=== PATIENT | female | born 1950 | race Caucasian/White ===

== ENCOUNTER 2020-06-25 10:18 | Outpatient (CLI) | payer BC, SELFPAY ==
--- NOTE | 2020-06-25 10:28 | XR_ITS ---
WS: [id number] SCREENING DEXA SCAN [employer] CLINICAL INFORMATION: AGE-RELATED OSTEOPOROSIS WITHOUT CURRENT PATHOLOGICAL FRACTU COMPARISON: FINDINGS: The L1-L4 bone mineral density measures 0.847 g/cm2. This corresponds to a T score score of -2.8 and Z score of -0.9. Left femoral neck bone mineral density measures 0.785 g/cm2. This corresponds to a T score of -1.8 an d Z score of -0.2. Right femoral neck bone mineral density measures 0.767 g/cm2. This corresponds to a T score -1.9of an d Z score of -0.4. Mean femoral neck bone mineral density measures 0.776 g/cm2. This corresponds to a T score of -1.8 an d Z score of -0.3. XR/XR DEXA axial skeleton* [id number] IMPRESSION: Osteoporosis lumbar spine. Osteopenia in the femoral necks. Patient's FRAX calculated 10 year probability for major osteoporotic fracture i s 19.1 % and osteoporotic hip fracture is 4.1%.
== END 2020-06-25 10:19 | disposition home or self-care (01) ==
LOC: RADWPI 10:22
PROVIDERS: PCP Family Medicine; Visit Provider Family Medicine
DX: M81.0 Age-related osteoporosis without current pathological fracture (principal); M85.88 Other specified disorders of bone density and structure, other site
CPT/HCPCS: 77080

== ENCOUNTER 2020-07-26 11:17 | Outpatient (CLI) | payer BC, MEDICARE, SELFPAY ==
--- NOTE | 2020-07-26 11:19 | MM_ITS ---
WS: [id number] BILATERAL SCREENING DIGITAL MAMMOGRAM WITH CAD HISTORY: SCREENING COMPARISON: 07/21/2018, 07/02/2017 Bilateral CC and MLO views submitted. Computer aided detection analyzed. Breast composition: The breasts are heterogeneously dense, which may obscure small masses. No suspici ous masses, microcalcifications or architectural distortion. Benign-appearing calcifications in the c entral LEFT breast. MM/[place] [id number] IMPRESSION: BI-RADS: 2-Benign FOLLOW UP: 1 Year Follow-up
== END 2020-07-26 11:18 | disposition home or self-care (01) ==
LOC: RADSHAW 11:17
PROVIDERS: PCP Family Medicine; Visit Provider Family Medicine
DX: Z12.31 Encounter for screening mammogram for malignant neoplasm of breast (principal)
CPT/HCPCS: 77067

== ENCOUNTER 2021-08-14 14:32 | Outpatient (CLI) | payer BC, MEDICARE, SELFPAY ==
--- NOTE | 2021-08-14 14:58 | XR_ITS ---
WS: [id number] Thoracic spine, AP and lateral views, 08/14/2021 Clinical Data: FALL Comparison: Thoracic spine, 06/03/2010. Findings: There are compression fractures of T8, T9, T12 and L1.The height loss is greater than 25% but less t cuevas 50%. The T8 and T9 compression fractures may be acute. There is anterior osteoarthritic spurring is seen at T11 and T12. The disc heights are maintained. There is a dextroscoliosis. The paravertebral region is normal. XR/XR thoracic spine 2V [id number] Impression: 1. Compression fractures of T8, T9, T12 and L1. 2. Dextroscoliosis and osteoarthritis.
== END 2021-08-14 14:33 | disposition home or self-care (01) ==
PROVIDERS: PCP Family Medicine; Visit Provider Family Medicine
DX: S22.069A Unspecified fracture of T7-T8 vertebra, initial encounter for closed fracture (principal); S22.079A Unspecified fracture of T9-T10 vertebra, initial encounter for closed fracture; S22.089A Unspecified fracture of T11-T12 vertebra, initial encounter for closed fracture; S32.019A Unspecified fracture of first lumbar vertebra, initial encounter for closed fracture; W19.XXXA Unspecified fall, initial encounter; M41.84 Other forms of scoliosis, thoracic region
CPT/HCPCS: 72070

== ENCOUNTER 2021-09-26 10:15 | Outpatient (CLI) | payer BC, MEDICARE, SELFPAY ==
--- NOTE | 2021-09-26 10:24 | MM_ITS ---
WS: [id number] BILATERAL SCREENING 3D TOMOSYNTHESIS DIGITAL MAMMOGRAM WITH CAD HISTORY: SCREENING COMPARISON: None available. Bilateral CC and MLO views submitted. Computer aided detection analyzed. Breast composition: The breasts are heterogeneously dense, which may obscure small masses. No suspici ous masses, microcalcifications or architectural distortion. MM/[place] [id number] IMPRESSION: BI-RADS: 1-Negative FOLLOW UP: 1 Year Follow-up
== END 2021-09-26 10:16 | disposition home or self-care (01) ==
LOC: RADSHAW 10:18
PROVIDERS: PCP Family Medicine; Visit Provider Family Medicine
DX: Z12.31 Encounter for screening mammogram for malignant neoplasm of breast (principal)
CPT/HCPCS: 77063; 77067

== ENCOUNTER 2021-12-16 13:32 | Outpatient (CLI) | payer BC, MEDICARE, SELFPAY ==
--- NOTE | 2021-12-16 13:52 | XR_ITS ---
WS: [email or web address] Right ankle, 3 views, 12/16/2021 Clinical Data: LOCALIZED SWELLNG,MASS,AND LUMP, R LOWER LIMB Comparison: None. Findings: No fractures or dislocations are seen. The ankle mortise is normal. The talus and calcaneus are unrem arkable. No soft tissue swelling over the medial or lateral malleolus is seen. There is a plantar spur. XR/XR ankle RT min 3V* [id number] Impression: Negative right ankle.
== END 2021-12-16 13:33 | disposition home or self-care (01) ==
LOC: RAD 13:37
PROVIDERS: PCP Family Medicine; Visit Provider Family Medicine
DX: R22.41 Localized swelling, mass and lump, right lower limb (principal)
CPT/HCPCS: 73610

== ENCOUNTER → 2022-05-13 13:25 | Outpatient (BNVA) | payer MEDICARE, SELFPAY | PROVIDERS: PCP Family Medicine; Visit Provider Emergency Medicine | DX: R39.9 Unspecified symptoms and signs involving the genitourinary system (principal); N30.01 Acute cystitis with hematuria | CPT/HCPCS: 81003; 87086 ==

== ENCOUNTER 2022-09-28 13:47 | Outpatient (CLI) | payer MEDICARE, SELFPAY ==
--- NOTE | 2022-09-28 13:57 | XR_ITS ---
WS: [id number] DEXA (DUAL ENERGY X-RAY ABSORPTIOMETRY) Bone mineral density was performed using a [employer] machine. HISTORY: OSTEOPOROSIS COMPARISON: 06/25/2020 Lumbar spine BMD (L1-L4): 0.841 g/cm2 T score: -2.8 Z score: -1.0 Total hip BMD: Left: 0.777 g/cm2. T score: -1.8 Z score: -0.2 Right: 0.758 g/cm2. T score: -2.0 Z score: -0.4 10 year probability of a major osteoporotic fracture is 21.5%. Compared to the prior study from 06/25/2020. Lumbar spine bone mineral density has decrease by 0.7%. Bilateral hips bone mineral density has decreased by 1.2%. XR/XR DEXA axial skeleton* [id number] IMPRESSION: OSTEOPOROSIS based upon the WHO classification for females. No significant change in bone mineral density since the prior study.
--- NOTE | 2022-09-28 13:57 | MM_ITS ---
WS: [id number] VIEWS: MLO and CC views both breasts. 3D digital tomosynthesis is also included in this exam. Comparison made with prior exam of 04/22/2015, 05/04/2016, 07/21/2018, 07/26/2020, 09/26/2021.. Findings: There was no sign of mass, architectural distortion or suspicious calcification in either breast. Th e breasts are heterogeneously dense MM/[place] [id number] Impression: BI-RADS: 2-Benign FOLLOW-UP: 1 Year Follow-up This mammogram was also analyzed by the Computer Aided Detection System [employer].
== END 2022-09-28 13:48 | disposition home or self-care (01) ==
LOC: RAD 13:50
PROVIDERS: PCP Family Medicine; Visit Provider Family Medicine
DX: Z12.31 Encounter for screening mammogram for malignant neoplasm of breast (principal); Z78.0 Asymptomatic menopausal state; M81.0 Age-related osteoporosis without current pathological fracture
CPT/HCPCS: 77063; 77067; 77080

== ENCOUNTER → 2023-01-05 10:05 | Outpatient (BNVA) | payer MEDICARE, SELFPAY | PROVIDERS: PCP Family Medicine; Visit Provider Nurse Practitioner Family | DX: R39.9 Unspecified symptoms and signs involving the genitourinary system (principal); N30.01 Acute cystitis with hematuria | CPT/HCPCS: 81000 ==

== ENCOUNTER 2023-08-16 10:37 | Emergency (ER) | payer MEDICARE, SELFPAY ==
[2023-08-16 10:39] VITALS: BMI 22.8
[2023-08-16 10:43] VITALS: BP 115/71; PULSE 69; RESP 16; TEMP 36.7; O2SAT 98
--- NOTE | 2023-08-16 10:53 | ECG_ITS ---
[facility] Test Date: 2023-08-16 Pat Name: Manuela Alvarez Department: Room: Gender: Female Product Support Technician: : 1950 Requested By: Sanjeev Rosales Order Number: [id number] Chantelle MD: Collin Acevedo M.D. Measurements Intervals [place] Rate: 69 P: 80 WI: 135 QRS: 48 QRSD: 72 T: 52 QT: 371 QTc: 400 Interpretive Statements SINUS RHYTHM WITH OCCASIONAL VENTRICULAR PREMATURE COMPLEXES LOW QRS VOLTAGE IN PRECORDIAL LEADS [QRS DEFLECTION < 1.0 mV IN CHEST LEADS] No previous ECG available for comparison Electronically Signed On 08-16-2023 14:20:35 CDT by Collin Acevedo M.D. [email or web address]
--- NOTE | 2023-08-16 10:53 | XRR_ITS ---
PROCEDURE INFORMATION: Exam: XR Chest Exam date and time: 08/16/2023 11:07 AM Age: 73 years old Clinical indication: Angina pectoris and left-sided; Patient HX: Heart racing, left sided chest pain and heaviness feeling TECHNIQUE: Imaging protocol: Radiologic exam of the chest. Views: 1 view. COMPARISON: CR XR thoracic spine 2V [id number] 08/14/2021 3:20 PM FINDINGS: Lungs: Calcified granuloma left lung base. Otherwise, unremarkable.. Pleural spaces: Unremarkable. No pleural effusion. No pneumothorax. Heart/Mediastinum: Unremarkable. No cardiomegaly. Bones/joints: Unchanged moderate scoliosis. Compression deformities in the midthoracic spine. At least 1 may be new. Exact age of these is uncertain. XR/XR chest 1V portable [id number] IMPRESSION: 1. No acute cardiopulmonary disease. 2. Compression deformities midthoracic spine. At least 1 may be new. Uncertain age.
[2023-08-16 11:23] VITALS: BP 149/66; PULSE 74; RESP 16; O2SAT 97
[2023-08-16 11:28] LABS: Basophils % 0.8 %; Eosinophils # 0.1 10^3/uL (0.0-0.8); Lymphocytes # 1.7 10^3/uL (0.8-4.8); Lymphocytes % 33.1 %; Mean Corpuscular HGB Conc 32.6 g/dL (30-55); Mean Corpuscular Hemoglobin 31.5 pg (27-33); Mean Corpuscular Volume 96.6 fl (85-98); Mean Platelet Volume 9.8 fL (7.4-10.4); Monocytes # 0.4 10^3/uL (0.2-0.9); Neutrophils # 2.98 10^3/uL (1.8-7.7); Neutrophils % 57.7 %; Nucleated Red Blood Cells % 0 %; Platelet Count 203 10^3/cmm (157-399); Red Blood Count 4.35 10^6/uL (3.85-5.65); Red Cell Distribution Width 12.7 % (12.1-15.1); White Blood Count 5.16 10^3/uL (3.29-11.43)
--- NOTE | 2023-08-16 11:40 | W.ED.CHESTPA ---
HPI - Chest Pain General: Chief Complaint: Chest Pain Stated Complaint: sob, chest pain Time Seen by Provider: 08/16/23 10:54 History of Present Illness: Patient reports to the ER with complaints of left-sided chest pain and shortness of breath over about the last 3 days. Patient says when these started she got very upset. Patient says that it is still there but is getting better all the time. Patient describes as a pressure. Patient is unknown whether it is true chest pain or radiating from her back. Patient says she has chronic back pain with osteoarthritis and osteoporosis. Patient is never had pain like this before. Patient denies any coronary artery disease, ME, stents etc. Review of Systems General: Reports: 10 or more systems reviewed and unremarkable except in HPI and below Physical Exam Const: COMMON NORMALS: no acute distress, average body habitus, patient oriented x3, no limitations, healthy appearing, alert and well nourished HENMT: COMMON NORMALS: normocephalic, atraumatic, hearing grossly normal bilaterally, external ears normal, Normal external nose present, moist oral mucous membranes and oropharynx normal HEAD & SCALP: normocephalic and atraumatic NOSE: Normal external nose present EXTERNAL EAR: Yes external ears normal Neck/C-Spine: COMMON NORMALS: no JVD Chest: COMMONS NORMALS: normal inspection of the chest and normal palpation of entire chest wall Resp: COMMON NORMALS: normal respiratory effort, No retractions, No use of accessory muscles and clear to auscultation bilaterally AUSCULTATION: clear to auscultation bilaterally Cardio: COMMON NORMALS: no JVD, regular rate, regular rhythm, S1 normal heart sound present, S2 normal heart sound present, No gallops present (Cardio), No clicks present (Cardio), No murmurs present (Cardio) and No rub (Cardio) RATE: regular rate RHYTHM: regular rhythm HEART SOUNDS: S1 normal heart sound present and S2 normal heart sound present GI: COMMON NORMALS: Normal to inspection, nondistended, normoactive bowel sounds present, Soft to palpation, non-tender, No hepatosplenomegaly present and no masses PALPATION: Yes Soft to palpation and Yes No hepatosplenomegaly present Neuro: COMMON NORMALS: patient oriented x3 SENSORIUM/ORIENTATION: Yes alert Course Vital Signs: Vital signs: Vital Signs Temperature 98.0 F 08/16/23 10:43 Pulse Rate 60 03/11/24 13:15 Respiratory Rate 16 08/16/23 13:15 Blood Pressure 152/78 08/16/23 13:15 Pulse Oximetry 100 08/16/23 13:15 Oxygen Delivery Me thod Room Air 08/16/23 10:43 MDM - Chest Pain Medical Decision Making Patient was worked up in a standard cardiac fashion with serial EKGs troponins, chest x-ray, all was essentially benign for acute cardiac issues. She will troponin was less than 6, 2-hour troponin was 6, for delta of essentially 0. Patient remained chest pain-free that the entire time that she was here. Patient be discharged back home to follow-up with her PCP for further evaluation testing. Differential Diagnosis Unlikely acute massive pulmonary embolism, acute respiratory failure, acute myocardial infarction, cardiac arrest or sudden cardiac Medical Records I reviewed the patient's medical records. Lab Data I reviewed the patient's lab results. 08/16/23 11:16 08/16/23 11:16 Radiology Impressions Chest X-Ray 08/16/23 10:53 IMPRESSION: 1. No acute cardiopulmonary disease. 2. Compression deformities midthoracic spine. At least 1 may be new. Uncertain age. Laboratory Results WBC 5.16 10^3/uL (3.29-11.43) 08/16/23 11:16 RBC 4.35 10^6/uL (3.85-5.65) 08/16/23 11:16 Hgb 13.70 g/dL (11.27-16.99) 08/16/23 11:16 Hct 42.0 % (36-47) 08/16/23 11:16 MCV 96.6 fl (85-98) 08/16/23 11:16 MCH 31.5 pg (27-33) 08/16/23 11:16 MCHC 32.6 g/dL (30-55) 08/16/23 11:16 RDW 12.7 % (12.1-15.1) 08/16/23 11:16 Plt Count 203 10^3/cmm (157-399) 08/16/23 11:16 MPV 9.8 fL (7.4-10.4) 08/16/23 11:16 Neut % (Auto) 57.7 % 08/16/23 11:16 Lymph % (Auto) 33.1 % 08/16/23 11:16 Russell % (Auto) 7.0 % 08/16/23 11:16 Eos % (Auto) 1.0 % 08/16/23 11:16 Baso % (Auto) 0.8 % 08/16/23 11:16 Neut # (Auto) 2.98 10^3/uL (1.8-7.7) 08/16/23 11:16 Lymph # (Auto) 1.7 10^3/uL (0.8-4.8) 08/16/23 11:16 Russell # (Auto) 0.4 10^3/uL (0.2-0.9) 08/16/23 11:16 Eos # (Auto) 0.1 10^3/uL (0.0-0.8) 08/16/23 11:16 Baso # (Auto) 0.0 10^3/uL (0.0-0.1) 08/16/23 11:16 Nucleated RBC % (auto) 0 % 08/16/23 11:16 Nucleated RBCs # 0.0 /100WBC 08/16/23 11:16 Sodium 140 mmol/L (136-145) 08/16/23 11:16 Potassium 4.5 mmol/L (3.5-5.1) 08/16/23 11:16 Chloride 104 mmol/L (98-107) 08/16/23 11:16 Carbon Dioxide 25 mmol/L (22-29) 08/16/23 11:16 Anion Gap 15.5 (5-19) 08/16/23 11:16 BUN 16 mg/dL (8-23) 08/16/23 11:16 Creatinine 0.8 mg/dL (0.5-0.9) 08/16/23 11:16 GFR Calculation Not Reportable 08/16/23 11:16 Glucose 88 mg/dL (65-115) 08/16/23 11:16 Calculated Osmolality 291 mOsm/kg (285-295) 08/16/23 11:16 Calcium 9.3 mg/dL (8.5-10.5) 08/16/23 11:16 Total Bilirubin 0.5 mg/dL (0.15-1.2) 08/16/23 11:16 AST 22 U/L (0-32) 08/16/23 11:16 ALT 14 U/L (0-33) 08/16/23 11:16 Alkaline Phosphatase 80 U/L (35-105) 08/16/23 11:16 Troponin T Baseline < 6 ng/L (0-10) 08/16/23 11:16 Troponin T 120 Minute 6.00 ng/L (0-10) 08/16/23 13:05 Delta Troponin T 0.81222 ABS# (0-10) 08/16/23 13:05 Total Protein 7.1 g/dL (6.6-8.7) 08/16/23 11:16 Albumin 4.5 g/dL (3.5-5.2) 08/16/23 11:16 Globulin 2.6 g/dL (1.3-4.6) 08/16/23 11:16 All radiology interpretation(s) finalized by discharge EKG Data EKG 1: I personally reviewed and interpreted this EKG as follows: EKG interpretation date: 08/16/23 EKG interpretation time: 11:58 Interpretation: Ventricular rate 64 bpm, VT interval 138, QRS duration 79, QTc of 411, sinus rhythm, Discharge Plan Discharge Patient Disposition: Home Clinical Impression: Atypical chest pain Condition: Stable Prescriptions: No Action simvastatin 20 mg tablet 20 mg PO QPM latanoprost 0.005 % drops 1 drp ophthalmic (eye) BEDTIME Discharge Orders: Discharge ED (Routine); Ordered 08/16/23 Ordered By: Sanjeev Rosales Referrals: Melly Meneses MD [Primary Care Provider] - 1 week Patient Instructions: Chest Pain - Noncardiac Activity Restrictions/Additional Instructions: Your evaluation in ER did not show any acute cause of cardiac related chest pain. It is felt to be noncardiac in nature. Please follow-up with your family practice physician for further evaluation and testing. If your chest pain returns please feel free to return to the ER. Coding Level of Care Code ED Principal Gifts Officer for Giancarlo Madera
[2023-08-16 11:46] LABS: Alanine Aminotransferase 14 U/L (0-33); Albumin Level 4.5 g/dL (3.5-5.2); Alkaline Phosphatase 80 U/L (35-105); Aspartate Amino Transferase 22 U/L (0-32); Blood Urea Nitrogen 16 mg/dL (8-23); Calcium 9.3 mg/dL (8.5-10.5); Carbon Dioxide 25 mmol/L (22-29); Chloride 104 mmol/L (98-107); Globulin 2.6 g/dL (1.3-4.6); Glucose 88 mg/dL (65-115); Osmolality Calculated 291 mOsm/kg (285-295); Sodium 140 mmol/L (136-145); Total Bilirubin 0.5 mg/dL (0.15-1.2); Total Protein 7.1 g/dL (6.6-8.7)
[2023-08-16 11:52] LABS: Troponin(5th) Baseline < 6 ng/L (0-10)
--- NOTE | 2023-08-16 11:58 | ECG_ITS ---
[facility] Test Date: 2023-08-16 Pat Name: Manuela Alvarez Department: Room: Gender: Female Patient Care Associate: : 1950 Requested By: Sanjeev Rosales Order Number: [id number] Reading MD: Collin Acevedo M.D. Measurements Intervals [place] Rate: 64 P: 64 UT: 138 QRS: 52 QRSD: 79 T: 56 QT: 402 QTc: 416 Interpretive Statements SINUS RHYTHM LOW QRS VOLTAGE IN PRECORDIAL LEADS [QRS DEFLECTION < 1.0 mV IN CHEST LEADS] Compared to ECG 08/16/2023 10:40:18 Ventricular premature complex(es) no longer present Electronically Signed On 08-16-2023 14:24:30 CDT by Collin Acevedo M.D. [email or web address]
[2023-08-16 12:08] VITALS: BP 135/62; PULSE 66; RESP 16; O2SAT 99
[2023-08-16 12:23] LABS: Anion Gap 15.5 (5-19); Potassium 4.5 mmol/L (3.5-5.1)
[2023-08-16 13:15] VITALS: BP 152/78; PULSE 60; RESP 16; O2SAT 100
[2023-08-16 13:40] LABS: Troponin 5 2HR Delta 0.00001 ABS# (0-10)
== END 2023-08-16 14:14 | disposition home or self-care (01) ==
PROVIDERS: Emergency Provider Emergency Medicine; PCP Family Medicine
DX: R07.89 Other chest pain (principal)
CPT/HCPCS: 71045; 80053; 84484; 85025; 93005; 99285

== ENCOUNTER 2023-10-05 09:40 | Outpatient (CLI) | payer MEDICARE, SELFPAY ==
--- NOTE | 2023-10-05 09:45 | MM_ITS ---
WS: [id number] BILATERAL SCREENING DIGITAL TOMOSYNTHESIS MAMMOGRAM WITH CAD HISTORY: SCREENING COMPARISON: 09/28/2022, 09/26/2021 Bilateral CC and MLO views with tomosynthesis and synthetic mammography submitted. Computer aided det ection analyzed. Breast composition: The breasts are heterogeneously dense, which may obscure small masses. No suspici ous masses, microcalcifications or architectural distortion. MM/[place] [id number] IMPRESSION: BI-RADS: 2-Benign FOLLOW UP: 1 Year Follow-up
== END 2023-10-05 09:41 | disposition home or self-care (01) ==
PROVIDERS: PCP Family Medicine; Visit Provider Family Medicine
DX: Z12.31 Encounter for screening mammogram for malignant neoplasm of breast (principal)
CPT/HCPCS: 77063; 77067

== ENCOUNTER 2024-10-05 09:34 | Outpatient (CLI) | payer MEDICARE, SELFPAY ==
--- NOTE | 2024-10-05 09:37 | MM_ITS ---
WS: [id number] Bilateral screening 3D tomosynthesis digital mammogram, 10/05/2024 9:38 AM Clinical Data: SCREENING Comparison: 10/05/2023, 09/28/2022, 09/26/2021, 07/26/2020, 07/21/2018, 07/02/2017, 05/04/2016. Findings: No spiculated masses or clustered calcifications are seen. There are no secondary signs of carcinoma. MM/MM scr BI tomosynthesis [id number] Impression: Negative bilateral mammogram unchanged. Recommend annual screening mammograms. BIRADS: 1 - Negative FOLLOW UP: 1 Year Follow-up DENSITY: The breasts are heterogeneously dense, which may obscure small masses. The CAD [employer] was used
== END 2024-10-05 09:35 | disposition home or self-care (01) ==
PROVIDERS: PCP Family Medicine; Visit Provider Family Medicine
DX: Z12.31 Encounter for screening mammogram for malignant neoplasm of breast (principal); R92.333 Mammographic heterogeneous density, bilateral breasts
CPT/HCPCS: 77063; 77067

== ENCOUNTER → 2024-10-27 09:15 | Outpatient (BNVA) | payer MEDICARE, SELFPAY | PROVIDERS: PCP Family Medicine; Visit Provider Family Medicine Adult Medicine | DX: J02.9 Acute pharyngitis, unspecified (principal) | CPT/HCPCS: 81000 ==

== ENCOUNTER 2025-04-20 14:47 | Outpatient (CLI) | payer MEDICARE, SELFPAY ==
--- NOTE | 2025-04-20 14:51 | XR_ITS ---
WS: [id number] DEXA (DUAL ENERGY X-RAY ABSORPTIOMETRY) Bone mineral density was performed using a [email or web address] machine. HISTORY: ASYMPTOMATIC MENOPAUSAL STATE COMPARISON: 09/28/2022 Lumbar spine BMD (L1-L4): 0.853 g/cm2 T score: -2.7 Z score: -0.8 Total hip BMD: Left: 0.741 g/cm2. T score: -2.1 Z score: -0.3 Right: 0.729 g/cm2. T score: -2.2 Z score: -0.4 10 year probability of a major osteoporotic fracture is 23.2%. Compared to the prior study from 09/28/2022. Lumbar spine bone mineral density has increased by 1.4%. Bilateral hips bone mineral density has decreased by 4.2%. XR/XR DEXA axial skeleton* [id number] IMPRESSION: OSTEOPOROSIS based upon the WHO classification for females. Significant decrease in bone mineral density within the hips since the prior ex am. No significant change of bone mineral density in the lumbar spine.
== END 2025-04-20 14:48 | disposition home or self-care (01) ==
LOC: RAD 14:48
PROVIDERS: PCP Family Medicine; Visit Provider Nurse Practitioner Family
DX: Z13.820 Encounter for screening for osteoporosis (principal); Z78.0 Asymptomatic menopausal state
CPT/HCPCS: 77080